=== PATIENT | male | born 1975 | race African-American/Black ===

== ENCOUNTER 2016-12-04 21:31 | Emergency (ER) | payer BC ==
[~2016-12-04] VITALS: Ht 172.7 cm; Wt 72.6 kg
--- NOTE | ~2016-12-04 | CT52 ---
[facility] A Service of [facility] & [facility] RADIOLOGY TEXT RESULTS PATIENT: BABS BALDERRAMA LOCATION: [facility] : 73 UNIT #: [id number] AGE: [address]: Francis Bermeo MD SEX: M ORDER DR: [id number] [facility] [address] [place], [place] [address] [id number] E MR#: [id number] Acc #: [id number] NAME: BABS BALDERRAMA : 1975 SEX: M STUDY DATE/TIME: 12/05/2016 00:27 UNIT: [facility] ROOM: STUDY DESCRIPTION: CT Cervical Spine Wo Cont Attending Physician: Francis Bermeo M.D. Ordering Physician: Francis Bermeo M.D. Primary Care Physician: Primary Care Physician No MEDICAL IMAGING REPORT This report is preliminary unless electronic signature is present EXAM Cervical spine CT, 12/05 at 00:27 INDICATIONS Neck pain and headache for 1 week. No trauma. TECHNIQUE Axial images were obtained through the cervical spine without contrast. Multiplanar reformats were obtained. No comparison. This CT exam was performed with one or more of the following radiation dose reduction techniques: Automatic exposure control, adjustment of mA and/or kV according to patient size, and iterative reconstruction. FINDINGS There is no fracture or malalignment. No significant disc bulging or herniation is seen. There is no central canal or neural foraminal narrowing. IMPRESSION Normal cervical spine CT. Dictated by... Minh Mandujano Jr., M.D. THIS IS AN ELECTRONICALLY VERIFIED REPORT Minh Mandujano Jr., M.D. at 12/05/2016 6:54 AM SOLOMON/darcie TD: 12/05/2016 02:18 JOB #: [id number] MEDICAL IMAGING REPORT [facility] A Service of [facility] & [facility] RADIOLOGY TEXT RESULTS PATIENT: BABS BALDERRAMA LOCATION: [facility] : 73 UNIT #: [id number] AGE: [address]: Francis Bermeo MD SEX: M ORDER DR: Page 1 of 1 COPY
--- NOTE | ~2016-12-04 | CT71 ---
[facility] A Service of [facility] RADIOLOGY TEXT RESULTS PATIENT: BABS BALDERRAMA LOCATION: [facility] : 73 UNIT #: [id number] AGE: [address]: Francis Bermeo MD SEX: M ORDER DR: [id number] [facility] [address] [place], [place] [address] [id number] E MR#: [id number] Acc #: [id number] NAME: BABS BALDERRAMA : 1975 SEX: M STUDY DATE/TIME: 12/05/2016 00:25 UNIT: [facility] ROOM: STUDY DESCRIPTION: CT Head Wo Contrast Attending Physician: Francis Bermeo M.D. Ordering Physician: Francis Bermeo M.D. Primary Care Physician: Primary Care Physician No MEDICAL IMAGING REPORT This report is preliminary unless electronic signature is present EXAM Head CT, 12/05 at 00:25 INDICATIONS Headache for 1 week with neck pain. No trauma. COMPARISON None. TECHNIQUE Axial noncontrast images were obtained from the skull base to the vertex. This CT exam was performed with one or more of the following radiation dose reduction techniques: Automatic exposure control, adjustment of mA and/or kV according to patient size, and iterative reconstruction. FINDINGS Ventricular size and configuration are normal. There is no evidence of acute infarct or hemorrhage. There are no extraaxial fluid collections. No mass lesion or mass effect is seen. There are no skull fractures. IMPRESSION Normal noncontrast head CT. Dictated by... Minh Mandujano Jr., M.D. THIS IS AN ELECTRONICALLY VERIFIED REPORT Minh Mandujano Jr., M.D. at 12/05/2016 6:54 AM SOLOMON/darcie TD: 12/05/2016 02:09 JOB #: [id number] [facility] A Service of [facility] & [facility] RADIOLOGY TEXT RESULTS PATIENT: BABS BALDERRAMA LOCATION: [facility] : 73 UNIT #: [id number] AGE: [address]: Francis Bermeo MD SEX: M ORDER DR: MEDICAL IMAGING REPORT Page 1 of 1 COPY
== END 2016-12-05 02:10 | disposition home or self-care (01) ==
LOC: CED 21:31
DX: G44.209 Tension-type headache, unspecified, not intractable (principal)
CPT/HCPCS: 70450; 72125; 96361; 96374; 96375; 99284; J2060; J2765

== ENCOUNTER 2016-12-18 06:21 | Emergency (ER) | payer BC | END 2016-12-18 08:52 | disposition home or self-care (01) | LOC: CED 06:21 | DX: G44.229 Chronic tension-type headache, not intractable (principal) | CPT/HCPCS: 99283 ==